=== PATIENT | male | born 1970 | race Caucasian/White ===

== ENCOUNTER 2017-01-02 19:10 | Emergency (ER) | payer SELFPAY ==
[~2017-01-02] VITALS: Ht 170.2 cm; Wt 117.9 kg
[2017-01-02 19:15] VITALS: BP 142/86
--- NOTE | 2017-01-02 19:28 | NUR ---
PATIENT TO ER BED 7.
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
--- NOTE | 2017-01-02 19:47 | NUR ---
Dr. Shelton evaluating patient at bedside.
[2017-01-02 20:47] VITALS: BP 124/67
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
--- NOTE | 2017-01-02 20:47 | NUR ---
PATIENT [facility]. PATIENT EXAMINED BY DR. CAMPBELL. PATIENT MEDICALLY CLEARED AND RELEASED IN CUSTODY IN STABLE CONDITION. ORIGINAL PRE-BOOK FORM GIVEN TO OFFICER SILVERIO.
== END 2017-01-02 20:47 ==
LOC: MED 19:10
DX: S00.83XA Contusion of other part of head, initial encounter (principal); R09.02 Hypoxemia; F12.10 Cannabis abuse, uncomplicated; F10.10 Alcohol abuse, uncomplicated; Y04.0XXA Assault by unarmed brawl or fight, initial encounter; Y93.89 Activity, other specified; Y92.89 Other specified places as the place of occurrence of the external cause; Y99.8 Other external cause status
CPT/HCPCS: 71010; 99283; Q0092